=== PATIENT | male | born 1935 | race Two or more races ===

== ENCOUNTER 2018-06-26 20:55 | Inpatient (IN) | payer MEDICARE, OTHER ==
[~2018-06-26] VITALS: Ht 177.8 cm; Wt 74.8 kg
[~2018-06-26 20:55] MED LIST: ASPI-1152 PO; CYAN10006 IM; MECL-102 PO; OMEP20CA10 PO; SENN-168 PO; TAMS0.4C34 PO; TRAM50TA2 PO
--- NOTE | 2018-06-26 23:30 | NUR ---
RN NOTES RECEIVED PT. FROM [place] DIRECT ADMIT, [id number], DAUGHTER AT BEDSIDE, [place] SPEAKING, DENIES PAIN ADMISSION INSTRUCTION WAS RENDERED, CALL LIGHT WITHIN REACH, [id number], CONTINUE TO MONITOR,. NO SOB,
[2018-06-27] VITALS: BP_SYST 97; BP_DIAS 60; BP_DIAS 62
[2018-06-27] MEDS ORDERED: MAGNESIUM HYDROXIDE 30 ML UDC PO PRN
[2018-06-27] MEDS ORDERED: ACETAMINOPHEN 325 MG TABLET PO PRN
[2018-06-27] MEDS ORDERED: HYDROCODONE/APAP 5/325MG 1 EACH TABLET PO PRN
[2018-06-27] MEDS ORDERED: MAG HYDROX/AL HYDROX/SIMETH 30 ML UDC PO PRN
[2018-06-27] MEDS ORDERED: ZOLPIDEM TARTRATE 5 MG TABLET PO PRN
[2018-06-27] MEDS ORDERED: Z GUARD REMEDY 2 OZ OINT TP PRN
[2018-06-27] MEDS ORDERED: ONDANSETRON HCL/PF 4 MG/2 ML VIAL IVP PRN
[2018-06-27] MEDS ORDERED: FURO-144 PO (00:04)
[2018-06-27] MEDS ORDERED: ALLO100T56 PO (00:04)
[2018-06-27 01:09] LABS: BASOPHILS % (AUTO) 0.4 % (0.0-2.0); EOSINOPHILS % (AUTO) 1.6 % (0.0-6.0); HEMATOCRIT 33 % (39-51); HEMOGLOBIN 10.5 g/dL (13.5-17.5); LYMPHOCYTES # (AUTO) 0.9 /CMM (0.8-4.8); LYMPHOCYTES % (AUTO) 11.3 % (20.0-44.0); MEAN CORPUSCULAR HGB CONC 32 g/dl (31.0-36.0); MEAN CORPUSCULAR VOLUME 84 fL (80-96); MONOCYTES # (AUTO) 0.5 /CMM (0.1-1.30); MONOCYTES % (AUTO) 6.4 % (2.0-12.0); NEUTROPHILS # (AUTO) 6.6 /CMM (1.8-8.9); NEUTROPHILS % (AUTO) 80.3 % (43.0-81.0); PLATELET COUNT (AUTO) 271 /CMM (150-450); RDW COEFFICIENT OF VARIATION 15.3 (11.5-15.0); RED BLOOD CELL COUNT(AUTO) 3.86 MIL/uL (4.5-6.0); WHITE BLOOD COUNT (AUTO) 8.2 K/uL (4.3-11.0)
[2018-06-27 01:40] LABS: ALANINE AMINOTRANSFERASE 11 U/L (12-78); ALBUMIN 3.3 g/dL (3.4-5.0); ALKALINE PHOSPHATASE 67 U/L (46-116); ASPARTATE AMINOTRANSFERASE 18 U/L (15-37); BILIRUBIN,TOTAL 0.5 mg/dL (0.2-1.0); CALCIUM, SERUM 8.6 mg/dL (8.5-10.1); CARBON DIOXIDE 19 mmol/L (21-32); CHLORIDE 100 mmol/L (98-107); CREATININE 2.2 mg/dL (0.6-1.3); GLUCOSE 83 mg/dL (74-106); MAGNESIUM 2.3 mg/dL (1.8-2.4); PHOSPHORUS 3.3 mg/dL (2.5-4.9); SODIUM SERUM 133 mmol/L (136-145); TOTAL PROTEIN, SERUM 6.5 g/dL (6.4-8.2); UREA NITROGEN, BLOOD 33 mg/dL (7-18)
[2018-06-27 06:41] LABS: ALANINE AMINOTRANSFERASE 10 U/L (12-78); ALBUMIN 3.4 g/dL (3.4-5.0); ALKALINE PHOSPHATASE 71 U/L (46-116); ASPARTATE AMINOTRANSFERASE 17 U/L (15-37); BILIRUBIN,DIRECT 0.2 mg/dL (0.0-0.2); BILIRUBIN,TOTAL 0.5 mg/dL (0.2-1.0); CALCIUM, SERUM 8.7 mg/dL (8.5-10.1); CARBON DIOXIDE 21 mmol/L (21-32); CHLORIDE 103 mmol/L (98-107); CREATININE 2.2 mg/dL (0.6-1.3); GLUCOSE 83 mg/dL (74-106); MAGNESIUM 2.5 mg/dL (1.8-2.4); PHOSPHORUS 3.3 mg/dL (2.5-4.9); POTASSIUM 4.1 mmol/L (3.5-5.1); SODIUM SERUM 136 mmol/L (136-145); TOTAL PROTEIN, SERUM 6.6 g/dL (6.4-8.2); UREA NITROGEN, BLOOD 33 mg/dL (7-18)
[2018-06-27 06:44] LABS: CHOLESTEROL 99 mg/dL (<200); HDL CHOLESTEROL 19 mg/dL (40-60); LDL 66 mg/dL (0-99); THYROID STIMULATING HORMONE 5.908 uIU/mL (0.358-3.74); TRIGLYCERIDES 123 mg/dL (30-150)
[2018-06-27 06:51] LABS: BASOPHILS % (AUTO) 0.4 % (0.0-2.0); EOSINOPHILS % (AUTO) 2.4 % (0.0-6.0); HEMATOCRIT 33 % (39-51); HEMOGLOBIN 10.8 g/dL (13.5-17.5); LYMPHOCYTES # (AUTO) 0.9 /CMM (0.8-4.8); LYMPHOCYTES % (AUTO) 11.4 % (20.0-44.0); MEAN CORPUSCULAR HGB CONC 33 g/dl (31.0-36.0); MEAN CORPUSCULAR VOLUME 83 fL (80-96); MONOCYTES # (AUTO) 0.6 /CMM (0.1-1.30); MONOCYTES % (AUTO) 7.5 % (2.0-12.0); NEUTROPHILS # (AUTO) 5.9 /CMM (1.8-8.9); NEUTROPHILS % (AUTO) 78.3 % (43.0-81.0); PLATELET COUNT (AUTO) 270 /CMM (150-450); RED BLOOD CELL COUNT(AUTO) 3.97 MIL/uL (4.5-6.0); WHITE BLOOD COUNT (AUTO) 7.5 K/uL (4.3-11.0)
--- NOTE | 2018-06-27 06:59 | NUR ---
RN NOTES AWAKE, DENIES PAIN, NO SOB, MORNING CARE RENDERED, PT. NEEDS ATTENDED
[2018-06-27 07:26] LABS: IRON, SERUM 27 ug/dl (50-175); TOTAL IRON BINDING CAPACITY 190 ug/dl (250-450)
[2018-06-27 08:00] VITALS: BP_SYST 93; BP_SYST 99; BP_DIAS 42; BP_DIAS 65
--- NOTE | 2018-06-27 08:11 | NUR ---
MS RN INITIAL NOTES Patient is awake, Barb[place] speaking, daughter at the bedside. Patient is A/O x4, on room air, denies shortness of breath, no complaint of pain. Urine specimen collected and send to lab for test urinalysis. Patient refused xray chest this morning, per daughter there's no need to repeat chest xray today, test was just done yesterday at [facility]. Result in the chart, will inform MD. Will cont to monitor.
[2018-06-27] MEDS: ASPIRIN EC 81 MG TABLET.DR PO SCH (08:46)
--- NOTE | 2018-06-27 08:47 | NUR ---
Patient refused aspirin, indication/importance/risk and benefits explained, patient still refused, per patient it upset his stomach, daughter at the bedside aide with Khmer speaking.
[2018-06-27] MEDS ORDERED: FUROSEMIDE 40 MG TABLET PO SCH (09:00)
[2018-06-27 10:30] LABS: APPEARANCE,URINE CLEAR (CLEAR); BILIRUBIN,URINE NEGATIVE (NEGATIVE); BLOOD, URINE 2+ Ery/uL (NEGATIVE); COLOR,URINE YELLOW (YELLOW); KETONES,URINE NEGATIVE (NEGATIVE); LEUKOCYTE ESTERASE ,URINE NEGATIVE (NEGATIVE); NITRITE, URINE NEGATIVE (NEGATIVE); PROTEIN,URINE NEGATIVE (NEGATIVE); UGLUCOSE NEGATIVE (NEGATIVE); UROBILINOGEN,URINE 0.2 EU/dL (0.2)
--- NOTE | 2018-06-27 10:38 | NUR ---
Rechecked BP still low 98/62 Lasix 40mg non administered.
[2018-06-27 10:53] LABS: BACTERIA,URINE None seen /HPF (None Seen); SQUAMOUS EPITHELIAL CELL,UR Few /HPF (None Seen); WBC,URINE NONE SEEN /HPF (0-3)
[2018-06-27 13:20] LABS: CREATININE, URINE 17.6 MG/DL (30.0-125.0); URINE TOTAL PROTEIN 21.3 mg/dL (0-11.9)
[2018-06-27] MEDS: IV NS 0.9% 1,000 ML IV PRN (13:41)
[2018-06-27 16:00] VITALS: BP 98/62
--- NOTE | 2018-06-27 18:13 | NUR ---
MS RN CLOSING NOTES Patient is sitting up in bed, had dinner with fair appetite, like food from home. Patient to be NPO after midnight, for CT needle biopsy in am, daughter consented procedure, consent form in the chart. Patient is cooperative, ambulates with PT today, denies pain. Oncology, nephrology consulted. IVF infusing. Will endorse to oncoming RN.
--- NOTE | 2018-06-27 19:44 | NUR ---
MS/RN OPENING NOTES RECEIVED PATIENT IN BED, HAVING ECHO, RESULT AT 55%EF, NORMAL, FAMILY AT BEDSIDE, [place] SPEAKING ONLY BUT HAVE DAUGHTER AND INVOLVE, WILL BE WITH PATIENT FOR TONIGHT. DISCUSSED PROCEDURE FOR TOMORROW, AND MADE AWARE FOR NPO STATUS AFTER MIDNIGHT, DISCUSSED AND OFFERED FOR SNACKS BEFORE MN. AWAKE, ALERT, PARTICIPATIVE TO CARE. CALL LIGHTS WITHIN REACH, BED IN LOCK POSITION WILL CONTINUE TO MONITOR.
[2018-06-27 20:00] VITALS: BP 114/63
[2018-06-27] MEDS: TAMSULOSIN 0.4 MG CAP.SR.24H PO SCH (21:30)
[2018-06-27] MEDS: TRAMADOL HCL 50 MG TABLET PO PRN (23:04)
--- NOTE | 2018-06-28 03:48 | NUR ---
ms/rn notes PATIENT MONITORING FOR BOWEL MOVEMENT REPORTED WITH WATER STOOL BUT NO FOWL ODOR .
--- NOTE | 2018-06-28 03:55 | NUR ---
MS/RN NOTES PATIENT WAS INSTRUCTED TO KEEP IV FLUIDS, BUT PATIENT REFUSED TO HAVE IT AT THIS TIME, INFORM THE BENEFIT AND CONSEQUENCE OF NOT HAVING THE IV FLUIDS 3X, VERBALIZED UNDERSTANDING, WILL MONITOR.
--- NOTE | 2018-06-28 06:24 | NUR ---
311-2MS/RN NOTES PATIENT SLEP 4 TO 5 HOURS, FAMILY INVOLVE AND ASSIST WITH CARE, HAD TO GO TO BATHROOM MANY TIMES TO URINATE AND REPORTED HAD BM 3X WITH WATERY STOOL WITH NO FOWL ODOR, TO COLLECT STOOL TO R/O CDIFF.CALL LIGHTS WITHIN REACH, BED IN LOCK POSITION, WILL MONITOR.WILL ENDORSE TO AM RN FOR SOL[place].
[2018-06-28 06:37] LABS: BASOPHILS % (AUTO) 0.4 % (0.0-2.0); EOSINOPHILS % (AUTO) 2.6 % (0.0-6.0); HEMATOCRIT 34 % (39-51); HEMOGLOBIN 11.1 g/dL (13.5-17.5); LYMPHOCYTES % (AUTO) 12.4 % (20.0-44.0); MEAN CORPUSCULAR HGB CONC 33 g/dl (31.0-36.0); MEAN CORPUSCULAR VOLUME 84 fL (80-96); MONOCYTES # (AUTO) 0.6 /CMM (0.1-1.30); MONOCYTES % (AUTO) 7.9 % (2.0-12.0); NEUTROPHILS # (AUTO) 6.1 /CMM (1.8-8.9); NEUTROPHILS % (AUTO) 76.7 % (43.0-81.0); PLATELET COUNT (AUTO) 287 /CMM (150-450); RDW COEFFICIENT OF VARIATION 15.6 (11.5-15.0); RED BLOOD CELL COUNT(AUTO) 4.02 MIL/uL (4.5-6.0); WHITE BLOOD COUNT (AUTO) 7.9 K/uL (4.3-11.0)
[2018-06-28 06:41] LABS: ALANINE AMINOTRANSFERASE 10 U/L (12-78); ALBUMIN 3.6 g/dL (3.4-5.0); ALKALINE PHOSPHATASE 72 U/L (46-116); ASPARTATE AMINOTRANSFERASE 16 U/L (15-37); BILIRUBIN,TOTAL 0.5 mg/dL (0.2-1.0); CALCIUM, SERUM 8.4 mg/dL (8.5-10.1); CARBON DIOXIDE 19 mmol/L (21-32); CHLORIDE 102 mmol/L (98-107); CREATININE 2.2 mg/dL (0.6-1.3); GLUCOSE 84 mg/dL (74-106); MAGNESIUM 2.6 mg/dL (1.8-2.4); PHOSPHORUS 3.1 mg/dL (2.5-4.9); POTASSIUM 3.9 mmol/L (3.5-5.1); SODIUM SERUM 136 mmol/L (136-145); TOTAL PROTEIN, SERUM 6.9 g/dL (6.4-8.2); UREA NITROGEN, BLOOD 35 mg/dL (7-18)
[2018-06-28 07:04] LABS: FREE PSA 0.28 ng/mL (0.00-45); PROSTATE SPECIFIC ANTIGEN SCR 0.87 ng/mL (0.00-4.00)
--- NOTE | 2018-06-28 07:10 | NUR ---
MS RN INITIAL NOTES Patient in bed, awake. Breathing on room air, tolerating well, denies shortness of breath. Patient is NPO status, for procedure CT needle biopsy today. IVF infusing. Call light within reach. Will cont to monitor.
[2018-06-28 08:00] VITALS: BP 128/74
[2018-06-28] MEDS: ASPIRIN EC 81 MG TABLET.DR PO SCH (08:47)
[2018-06-28 09:21] LABS: INR 1.1 (0.87-1.13)
[2018-06-28] MEDS ORDERED: FENTANYL PF 250MCG/5ML AMPUL IV ONE (09:30)
[2018-06-28] MEDS ORDERED: NALOXONE PREFILLED SYRINGE 2 MG/2 ML SYRINGE IV ONE (09:30)
[2018-06-28] MEDS ORDERED: MIDAZOLAM HCL 5MG/ML VIAL 25 MG/5 ML VIAL IV ONE (09:30)
[2018-06-28 16:00] VITALS: BP 100/50
[2018-06-28] MEDS: TRAMADOL HCL 50 MG TABLET PO PRN (16:33)
[2018-06-28] MEDS: FERROUS SULFATE (325 MG) 325 MG/TAB TABLET PO SCH (16:34)
--- NOTE | 2018-06-28 18:34 | NUR ---
MS RN CLOSING NOTES Patient is breathing on room air, tolerating well. Ambulates independently with standby assist. Patient refused PT, stating very tired per daughter. Post CT needle biopsy today, right side flank small incision covered with small band aide, no bleeding. IVF infusing, right back pain managed by PO PRN Tramadol. No bowel movement today, no diarrhea reported. Maintained safety, will endorse to oncoming RN.
--- NOTE | 2018-06-28 19:30 | NUR ---
RECEIVED PATIENT IN BED AWAKE. AO X 3, ABLE TO MAKE NEEDS KNOWN. FAMILY AT BEDSIDE FOR TRANSLATION. NO ACUTE DISTRESS NOTED. DENIES ANY PAIN AT THIS TIME. IV SITE PATENT, INTACT; IVF INFUSING ORDERED. SAFETY REMINDERS GIVEN. ON LOW BED WITH BILATERAL UPPER SIDE RAILS UP. CALL ERIC WITHIN EASY REACH. WILL CONTINUE TO MONITOR.
[2018-06-28 20:00] VITALS: BP 121/66
--- NOTE | 2018-06-28 21:45 | NUR ---
DR. BESS MADE AWARE THAT PATIENT IS STILL FEELING GASSY AFTER MAALOX. DR. BESS ORDERED SIMETHICONE 80 MG PO Q 6 HOURS PRN; NOTED AND CARRIED OUT.
[2018-06-28] MEDS: TAMSULOSIN 0.4 MG CAP.SR.24H PO SCH (21:54)
[2018-06-28] MEDS: SIMETHICONE 80 MG TAB.CHEW PO PRN (21:54)
[2018-06-28] MEDS: IV NS 0.9% 1,000 ML IV PRN (22:43)
--- NOTE | 2018-06-29 06:22 | NUR ---
PATIENT ASLEEP, EASILY AROUSABLE. RESPIRATIONS EVEN. NO SIGNS OF PAIN NOTED. DUE MED GIVEN WITH NO ASE NOTED. IVF INFUSING ORDERED. NEEDS ATTENDED. SAFETY PRECAUTIONS AND COMFORT MEASURES IN PLACE. WILL GIVE REPORT TO DAY SHIFT FOR CONTINUITY OF CARE.
--- NOTE | 2018-06-29 07:24 | NUR ---
RN OPENING NOTES RECEIVED PT. PT STABLE AND SLEEPING IN BED. NO S/S OF RESP DISTRESS OR SOB. PT DOES NOT APPEAR TO BE IN PAIN AT THIS TIME. PT ON RA, O2 SAT WNL. NS INFUSING AT 50 ML/HR THROUGH LAC 20G IV ACCESS. PER SURVEY RESEARCH ANALYST REPORT, PT AND FAMILY REQUESTING TO MEET WITH MD IN ORDER TO CLARIFY PLAN OF CARE, WILL F/U WITH MD. SAFETY MEASURES IN PLACE, CALL LIGHT WITHIN REACH. WILL CONTINUE TO MONITOR.
[2018-06-29 07:31] LABS: BASOPHILS % (AUTO) 0.5 % (0.0-2.0); HEMATOCRIT 32 % (39-51); HEMOGLOBIN 10.6 g/dL (13.5-17.5); LYMPHOCYTES # (AUTO) 0.8 /CMM (0.8-4.8); LYMPHOCYTES % (AUTO) 12.2 % (20.0-44.0); MEAN CORPUSCULAR HGB CONC 33 g/dl (31.0-36.0); MEAN CORPUSCULAR VOLUME 84 fL (80-96); MONOCYTES # (AUTO) 0.7 /CMM (0.1-1.30); MONOCYTES % (AUTO) 10.1 % (2.0-12.0); NEUTROPHILS % (AUTO) 73.2 % (43.0-81.0); PLATELET COUNT (AUTO) 251 /CMM (150-450); RDW COEFFICIENT OF VARIATION 15.8 (11.5-15.0); RED BLOOD CELL COUNT(AUTO) 3.86 MIL/uL (4.5-6.0); WHITE BLOOD COUNT (AUTO) 6.9 K/uL (4.3-11.0)
[2018-06-29 07:47] LABS: CALCIUM, SERUM 8.5 mg/dL (8.5-10.1); CARBON DIOXIDE 22 mmol/L (21-32); CHLORIDE 104 mmol/L (98-107); CREATININE 2.1 mg/dL (0.6-1.3); GLUCOSE 75 mg/dL (74-106); MAGNESIUM 2.6 mg/dL (1.8-2.4); POTASSIUM 4.1 mmol/L (3.5-5.1); SODIUM SERUM 138 mmol/L (136-145); UREA NITROGEN, BLOOD 32 mg/dL (7-18)
[2018-06-29 08:00] VITALS: BP 106/68
[2018-06-29 08:09] LABS: IMMUNOGLOBULIN A, SERUM 87 mg/dL (61-437); IMMUNOGLOBULIN G, SERUM 981 mg/dL (700-1600); IMMUNOGLOBULIN M, SERUM 57 mg/dL (15-143)
[2018-06-29] MEDS ORDERED: FERR325T28 PO (08:24)
[2018-06-29] MEDS ORDERED: HYDR-4384 PO (08:24)
[2018-06-29] MEDS: FERROUS SULFATE (325 MG) 325 MG/TAB TABLET PO SCH (08:30)
[2018-06-29] MEDS: ASPIRIN EC 81 MG TABLET.DR PO SCH (08:30)
[2018-06-29] MEDS: TRAMADOL HCL 50 MG TABLET PO PRN (08:31)
[2018-06-29] MEDS: SIMETHICONE 80 MG TAB.CHEW PO PRN (12:15)
[2018-06-29 13:09] LABS: AFP, TUMOR MARKER 1.1 ng/mL (0.0-8.3)
--- NOTE | 2018-06-29 18:48 | NUR ---
DISCHARGE NOTE PT DISCHARGED HOME. NO S/S OF RESP DISTRESS/SOB. NO C/O PAIN. PRESCRIPTION GIVEN TO PT. D/C TEACHING PERFORMED, PT VERBALIZES UNDERSTANDING. DC INSTRUCTIONS/BELONGINGS SHEET SIGNED, COPIED, PLACED IN CHART. ID BAND AND IV ACCESS REMOVED. WOUND PHOTOS TAKEN AND PLACED IN CHART. STABLE UPON DC. LEFT HOSPITAL WITH FAMILY IN PRIVATE CAR.
[2018-07-01 12:09] LABS: *SPE A/G RATIO 1.2 (0.7-1.7); *SPE ALBUMIN 3.6 g/dL (2.9-4.4); *SPE ALPHA-1-GLOBULIN 0.3 g/dL (0.0-0.4); *SPE BETA GLOBULIN 0.8 g/dL (0.7-1.3); *SPE GLOBULIN, TOTAL 3.1 g/dL (2.2-3.9); *SPE M-SPIKE Not Observed g/dL (Not Observed)
== END 2018-06-29 11:45 | disposition home or self-care (01) | DRG 840 ==
LOC: MED 22:55
PROVIDERS: ADMIT Internal Medicine; ATTEND Internal Medicine
PROC: 0WBH3ZX Excision of Retroperitoneum, Percutaneous Approach, Diagnostic (ICD-10-PCS; principal; 2018-06-28)
DX: C85.16 Unspecified B-cell lymphoma, intrapelvic lymph nodes (principal); N17.0 Acute kidney failure with tubular necrosis; E44.1 Mild protein-calorie malnutrition; E87.1 Hypo-osmolality and hyponatremia; D63.8 Anemia in other chronic diseases classified elsewhere; E03.9 Hypothyroidism, unspecified; E78.5 Hyperlipidemia, unspecified; I12.9 Hypertensive chronic kidney disease with stage 1 through stage 4 chronic kidney disease, or unspecified chronic kidney disease; N18.9 Chronic kidney disease, unspecified; I88.0 Nonspecific mesenteric lymphadenitis; I88.8 Other nonspecific lymphadenitis; Z68.23 Body mass index [BMI] 23.0-23.9, adult; R53.1 Weakness; N40.0 Benign prostatic hyperplasia without lower urinary tract symptoms
CPT/HCPCS: 36415; 71045-TC; 71250-TC; 76870-TC; 76942-TC; 77012-TC; 80048-TC; 80053-TC; 80061-TC; 80076-TC; 81000-TC; 82105; 82570-TC; 82728-TC; 82784; 83540-TC; 83615-TC; 83735-TC; 84100-TC; 84153-TC; 84154-TC; 84155; 84155-TC; 84165; 84300-TC; 84443-TC; 84702-TC; 85025-TC; 85730-TC; 86334; 87081-TC; 87086-TC; 88305-TC; 88342; 93307-TC; A4606; G0378; J2250; J2310; J3010; J7030; Z7610